=== PATIENT | male | born 2000 | race Caucasian/White ===

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

== ENCOUNTER 2018-08-01 10:53 | Emergency (ER) | payer MEDICAID ==
--- NOTE | 2018-08-01 11:27 | ER Document Report ---
ED General <OLGA ANDREA - Last Filed: 08/01/18 14:47> - General Mode of Arrival: Ambulatory Information source: Patient TRAVEL OUTSIDE OF THE [place] IN LAST 30 DAYS: No - HPI Onset: Just prior to arrival Onset/Duration: Sudden Quality of pain: No pain Severity: None Associated symptoms: None Exacerbated by: Denies Relieved by: Denies Similar symptoms previously: Yes Recently seen / treated by doctor: Yes <SAMANTHA ENRIQUE - Last Filed: 08/04/18 19:01> - General Chief Complaint: Suicidal Ideation Stated Complaint: SI/HI Time Seen by Provider: 08/01/18 11:02 Primary Care Provider: [facility] [Provider Group] - Follow up as needed [facility] [Provider Group] - Follow up as needed FREDDIE PAGAN NP [Primary Care Provider] - Follow up in 3-5 days Notes: 17-year-old male with hypothyroidism, bipolar disorder, schizophrenia, autism presents from the [facility] with complaints of homicidal ideation, suicidal ideation. Patient states that he began hearing voices again telling him to kill his family. He states that they are telling him to "slit their throats". Patient also admits to having thoughts of cutting his wrist. He states he has been compliant with his psychiatric medications but cannot tell me what they are currently. He does state that he has had a recent psychiatric admission within the last year at the [facility]. An employee from [facility] is with the patient and states that they noticed odd behavior today and after inquiring the patient admitted to what was going on. They state the patient was pacing around the room, constantly moving and appeared like a "dear in headlights". (SAMANTHA ENRIQUE) - Related Data Allergies/Adverse Reactions: No Known Allergies Allergy (Verified 08/01/18 10:53) Past Medical History - General Information source: Patient, [facility] Records - Social History Smoking Status: Former Smoker Frequency of alcohol use: None Drug Abuse: None Lives with: Family Family History: Reviewed & Not Pertinent Patient has suicidal ideation: Yes Patient has homicidal ideation: Yes Neurological Medical History: Denies: Hx Seizures Renal/ Medical History: Denies: Hx Peritoneal Dialysis Psychiatric Medical History: Reports: Hx Attention Deficit Hyperactivity Disorder, Hx Bipolar Disorder, Hx Depression, Hx Schizophrenia Past Surgical History: Reports: Hx Orthopedic Surgery - Rt foot - Immunizations Immunizations up to date: Yes Hx Diphtheria, Pertussis, Tetanus Vaccination: Yes <SAMANTHA ENRIQUE - Last Filed: 08/04/18 19:01> Review of Systems <SAMANTHA ENRIQUE - Last Filed: 08/04/18 19:01> - Review of Systems Notes: REVIEW OF SYSTEMS: CONSTITUTIONAL : Denies fever, chills, or sweats. Denies recent illness. Denies weight loss, recent hospitalizations. EENT: Denies visual changes, eye pain. Denies sore throat, oral lesions, difficulty swallowing. CARDIOVASCULAR: Denies chest pain. Denies palpitations. Denies lower extremity edema. RESPIRATORY: Denies cough. Denies shortness of breath, wheezing. GASTROINTESTINAL: Denies abdominal pain or distention. Denies nausea, vomiting, or diarrhea. Denies blood in vomitus, stools, or per rectum. Denies black, tarry stools. Denies constipation. GENITOURINARY: Denies difficulty urinating, painful urination, frequency, blood in urine, testicular pain or penile discharge. MUSCULOSKELETAL: Denies back or neck pain or stiffness. Denies joint pain or swelling. SKIN: Denies rash, lesions or sores. HEMATOLOGIC : Denies easy bruising or bleeding. LYMPHATIC: Denies swollen glands. NEUROLOGICAL: Denies confusion or altered mental status. Denies loss of consciousness. Denies dizziness or lightheadedness. Denies headache. Denies weakness or paralysis. Denies problems difficulty with ambulation, slurred speech. Denies sensory loss, numbness, or tingling. Denies seizures. PSYCHIATRIC: + Suicidal ideation, homicidal ideation, auditory hallucinations (SAMANTHA ENRIQUE) Physical Exam <SAMANTHA ENRIQUE - Last Filed: 08/04/18 19:01> - Vital signs Vitals: Temp Pulse Resp BP Pulse Ox 98.1 F 65 20 144/66 H 98 08/01/18 11:01 08/01/18 11:01 08/01/18 11:01 08/01/18 11:01 08/01/18 11:01 - Notes Notes: PHYSICAL EXAMINATION: GENERAL: Well-appearing, well-nourished and in no acute distress. HEAD: Atraumatic, normocephalic. EYES: Pupils equal round and reactive to light, extraocular movements intact, sclera anicteric, conjunctiva are normal. ENT: Nares patent, oropharynx clear without exudates. Moist mucous membranes. NECK: Normal range of motion, supple without lymphadenopathy LUNGS: Breath sounds clear to auscultation bilaterally and equal. No wheezes rales or rhonchi. HEART: Regular rate and rhythm without murmurs ABDOMEN: Soft, nontender, nondistended abdomen. No guarding, no rebound. No masses appreciated. Musculoskeletal: Normal range of motion, no pitting or edema. No cyanosis. NEUROLOGICAL: Cranial nerves grossly intact. Normal speech, normal gait. Normal sensory, motor exams PSYCH: Cooperative, admits to auditory hallucinations that tell him to kill his family. Admits to suicidal ideation, homicidal ideation. SKIN: Warm, Dry, normal turgor, no rashes or lesions noted. (SAMANTHA ENRIQUE) Course - Laboratory Result Diagrams: 08/01/18 11:39 08/01/18 11:39 <OLGA ANDREA - Last Filed: 08/01/18 14:47> - Laboratory Result Diagrams: 08/01/18 11:39 08/01/18 11:39 <SAMANTHA ENRIQUE - Last Filed: 08/04/18 19:01> - Vital Signs Vital signs: Temp Pulse Resp BP Pulse Ox 98.1 F 64 16 130/60 H 100 08/01/18 15:12 08/01/18 15:12 08/01/18 15:12 08/01/18 15:12 08/01/18 15:12 - Laboratory Laboratory results interpreted by me: 08/01/18 08/01/18 08/01/18 11:39 11:39 11:39 RBC 5.61 H Carbon Dioxide 31 H TSH < 0.01 L Free T3 pg/mL 7.28 H Salicylates < 1.0 L Acetaminophen < 10 L Discharge <LOGA ANDREA - Last Filed: 08/01/18 14:47> <SAMANTHA ENRIQUE - Last Filed: 08/04/18 19:01> - Discharge Clinical Impression: Suicidal ideations, Thyroid function study abnormality Condition: Stable Disposition: HOME, SELF-CARE Additional Instructions: You have been evaluated and assessed at [facility] Emergency Department by both the medical and behavioral health teams after presenting for suicidal and homicidal ideation and are now deemed appropriate for discharge. While in the ED, you received an initial medical screening, lab work, EKG, medications, direct staff observation, clinical evaluation, physician assessment, and outpatient resources. You were cleared from both services and record review revealed a history of similar visits and [facility] Crisis Resources were provided to you for when these situations arise. You are encouraged to develop positive coping skills through outpatient counseling and day treatment program through [facility]. You are also encouraged to follow up with your outpatient mental health provider at [facility] or another provider of your choosing and maintain compliance with your prescribed medication. DEPRESSION: Your evaluation reveals that you have mental depression. While symptoms may be vague, they often include disturbance of sleep, fatigue, loss of appetite, and general loss of interest in life. While depression may be a side effect of drugs, or a reaction to a major change in your life, many cases have no known cause. If depression is acute, and related to a major loss in your life, you can expect it to clear completely with time. If you have been depressed a long time, are prone to repeated bouts of depression or low mood, or have been thinking of suicide, get help. Depression can be treated with anti-depressant medication and counselling. Long-term depression will often take a few weeks to clear, even with appropriate medication. Follow-up care is important. SUICIDAL IDEATION: Suicidal ideation is a common medical term for thoughts about suicide, which may be as detailed as a formulated plan, without the suicidal act itself. Although most people who undergo suicidal ideation do not commit suicide, some go on to make suicide attempts. The range of suicidal ideation varies greatly from fleeting to detailed planning, role playing, and unsuccessful attempts. While thoughts about suicide are common, most people do not carry out serious actions to commit suicide. Based upon your evaluation and discussion with you, we do not believe you are currently at risk to act upon your thoughts of suicide. You have agreed to return to the Emergency Department, at any time, if you feel inclined to act upon your suicidal thoughts. FOLLOW-UP CARE: If you have been referred to a physician for follow-up care, call the physicians office for an appointment as you were instructed or within the next two days. If you experience worsening or a significant change in your symptoms, notify the physician immediately or return to the Emergency Department at any time for re-evaluation. Forms: Elevated Blood Pressure Referrals: [facility] [Provider Group] - Follow up as needed [facility] [Provider Group] - Follow up as needed FREDDIE PAGAN NP [Primary Care Provider] - Follow up in 3-5 days
[2018-08-01 12:08] LABS: ABSOLUTE EOSINOPHILS # (AUTO) 0.1 10^3/uL (0.0-0.6); ABSOLUTE LYMPHOCYTES (AUTO) 1.5 10^3/uL (0.5-4.7); ABSOLUTE MONOCYTES (AUTO) 0.4 10^3/uL (0.1-1.4); ABSOLUTE NEUT (AUTO) 4.7 10^3/uL (1.7-8.2); BASOPHILS % (AUTO) 0.3 % (0-2); EOSINOPHILS % (AUTO) 1.1 % (0-6); HEMATOCRIT 45.7 % (37.9-51.0); HEMOGLOBIN 15.4 g/dL (13.5-17.0); LYMPHOCYTES % (AUTO) 22.1 % (13-45); MEAN CORPUSCULAR HEMOGLOBIN 27.6 pg (27.0-33.4); MEAN CORPUSCULAR HGB CONC 33.8 g/dL (32.0-36.0); MEAN CORPUSCULAR VOLUME 82 fl (80-97); MONOCYTES % (AUTO) 6.7 % (3-13); PLATELET COUNT 186 10^3/uL (150-450); RED BLOOD COUNT 5.61 10^6/uL (4.35-5.55); RED CELL DISTRIBUTION WIDTH 13.6 % (11.5-14.0); SEGMENTED NEUTROPHILS % (AUTO) 69.8 % (42-78); TOTAL CELLS COUNTED % (AUTO) 100 %; WHITE BLOOD COUNT 6.7 10^3/uL (4.0-10.5)
--- NOTE | 2018-08-01 12:10 | EKG REPORT ---
SEVERITY:- BORDERLINE ECG - SINUS RHYTHM PROBABLE LEFT ATRIAL ABNORMALITY BORDERLINE RIGHT AXIS DEVIATION : Confirmed by: Avni Freed MD 01-Aug-2018 12:09:14
[2018-08-01 12:15] LABS: APPEARANCE,URINE CLEAR; BILIRUBIN,URINE NEGATIVE (NEGATIVE); COLOR,URINE STRAW; GLUCOSE, URINE NEGATIVE (NEGATIVE); KETONES,URINE NEGATIVE (NEGATIVE); LEUKOCYTE ESTERASE,URINE NEGATIVE (NEGATIVE); NITRITE,URINE NEGATIVE (NEGATIVE); PROTEIN,URINE NEGATIVE (NEGATIVE); URINE SPECIFIC GRAVITY 1.004; UROBILINOGEN,URINE NEGATIVE mg/dL (<2.0)
[2018-08-01 12:30] LABS: ALANINE AMINOTRANSFERASE 22 U/L (10-40); ALBUMIN 4.5 g/dL (3.7-5.6); ALKALINE PHOSPHATASE 107 U/L (65-260); ANION GAP 5 (5-19); ASPARTATE AMINO TRANSFERASE 17 U/L (10-45); BILIRUBIN,DIRECT 0.1 mg/dL (0.0-0.4); BILIRUBIN,TOTAL 0.3 mg/dL (0.2-1.3); BLOOD UREA NITROGEN 12 mg/dL (7-20); CARBON DIOXIDE 31 mmol/L (22-30); CHLORIDE 103 mmol/L (98-107); GLUCOSE 94 mg/dL (75-110); POTASSIUM 4.4 mmol/L (3.6-5.0); SODIUM 139.2 mmol/L (137-145); TOTAL PROTEIN 6.7 g/dL (6.3-8.2)
[2018-08-01 12:32] LABS: ACETAMINOPHEN < 10 ug/mL (10-30); ALCOHOL < 10 mg/dL (NONE DETECTED); SALICYLATE < 1.0 mg/dL (2.0-20.0)
[2018-08-01 12:33] LABS: URINE AMPHETAMINES SCREEN NEGATIVE; URINE BARBITURATES SCREEN NEGATIVE; URINE BENZODIAZEPINES SCREEN NEGATIVE; URINE COCAINE SCREEN NEGATIVE; URINE MARIJUANA (THC) SCREEN NEGATIVE; URINE METHADONE SCREEN NEGATIVE; URINE PHENCYCLIDINE SCREEN NEGATIVE
[2018-08-01 12:46] LABS: FREE T3 7.28 pg/mL (2.77-5.27); FREE T4 (FREE THYROXINE) 1.65 ng/dL (0.78-2.19)
[2018-08-01 13:01] LABS: THYROID STIMULATING HORMONE < 0.01 uIU/mL (0.47-4.68)
[2018-08-01] MEDS ORDERED: LEVOTHYROXINE SODIUM 0.05 MG TABLET PO ONE (14:04)
--- NOTE | 2018-08-01 14:49 | PSYCHOLOGICAL NOTE ---
Psych Note - Psych Note Date seen by psych provider: 08/01/18 Time seen by psych provider: 13:15 Psych Note: Reason for consult:SI, HI Contact Permissions:Grandfather and guardian Pipe Rangel Patient is a 17 yo male presenting to the ED from [facility] where he attends a day group for "odd behavior i.e. pacing. Chart review shows patient has prior psych visits SI, DMDD, IDD, and ADHD in 2016, SI x2 in 2017, and 1x in 2018. Patient is a 17 yo male with Bipolar and ASD diagnoses who reports isolated/situational SI/HI thoughts and reports a hx of NSSI (cutting). He says he was having thoughts of cutting himself today due to "just that kid/I wanted to punch him but I would have got in trouble so I didn't do it". Patient walked away and has told all of the staff members that he is annoyed by this other group member. He started having anxiety about this other member two days ago and told him to stay away from him. Last incident of cutting was 3 months ago. Patient denies SI, HI, and reports hearing voices which he describes as internal thoughts. Patient verbalizes that he has never acted on and does not want to act on these thoughts which consist of killing the family dog and slitting his own throat. He admits to punching rangel when he's angry. Patient's guardian reports that the only time we ever have a problem in on days when he's at [facility] day program 2days per week. He describes patient as calm and easy to get along with at home. He c/o patient being on too much medication and asks for a referral. He denies concern for patient's safety or other's safety and will keep him home form the day program tomorrow to respite and talk to adm inistration at [facility]. Patient is alert and oriented x 4. Mood is euthymic with congruent affect. Patient denies SI, HI, and AV/H, does not appear to be responding to internal stimuli, and no delusions were noted. Conversational speech was WNL for rate, tone, and prosody. Eye contact was well maintained. Thought processes were linear, organized, and rational. Intellectual abilities were estimated within the average range. Attention/concentration was WNL while, insight, judgment, and impulse control were fair. 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 Masters are as follows: Discontinue Abilify and Lexapro Impression/Plan: Patient is clear from acute psychiatric services as there is no risk of harm to self or others aeb patient denies SI, HI, and AV/H and demonstrated good judgment, and impulse control. Specifically, patient walks away from co-member at his community group who is causing him to feel anxious and annoyed and has alerted staff members about the issue. Patient is a 17 yo male with Bipolar and ASD diagnoses who reports isolated/situational SI/HI thoughts which he interprets as auditory hallucinations. Patient communicating suicidal ideation for depression is congruent with diagnosis of social pragmatic communication disorder. Patient verbalizes that he has never acted on and does not want to act on these thoughts. Behavioral Health provided psychoeducation on self- soothing techniques. Guardian plans for patient to respite from his day group tomorrow and speak to staff on his behalf. Patient is recommended to follow-up with outpatient providers [facility] and was provided with a list of local MH providers per Guardian's request. Dr. Marx was consulted on the care management of this patient attending physician is in agreement with recommendations and disposition.
[2018-08-01 15:14] VITALS: BP 130/60
== END 2018-08-01 15:18 | disposition home or self-care (01) ==
LOC: ER 10:53
DX: R45.851 Suicidal ideations (principal); R45.850 Homicidal ideations; F31.9 Bipolar disorder, unspecified; R44.0 Auditory hallucinations; E03.9 Hypothyroidism, unspecified; Z79.899 Other long term (current) drug therapy; Z87.891 Personal history of nicotine dependence
CPT/HCPCS: 36415; 80053; 80307; 81001; 84439; 84443; 84481; 85025; 93005; 93010; 99285

== ENCOUNTER 2018-11-16 11:57 | Emergency (ER) | payer MEDICAID ==
--- NOTE | 2018-11-16 12:52 | RADIOLOGY REPORT (SQ) ---
EXAM DESCRIPTION: HAND RIGHT 3 VIEWS COMPLETED DATE/TIME: 11/16/2018 12:20 pm REASON FOR STUDY: R hand pain s/p injury COMPARISON: 03/07/2017 EXAM PARAMETERS: NUMBER OF VIEWS: Three views. TECHNIQUE: AP, lateral and oblique radiographic images acquired of the right hand. LIMITATIONS: None. FINDINGS: MINERALIZATION: Normal. BONES: No acute fracture. Old 5th metacarpal fracture. JOINTS: No effusions. SOFT TISSUES: No soft tissue swelling. No foreign body. OTHER: No other significant finding. IMPRESSION: NEGATIVE STUDY OF THE RIGHT HAND. NO RADIOGRAPHIC EVIDENCE OF ACUTE INJURY. TECHNICAL DOCUMENTATION: JOB ID: [id number] [employer]- All Rights Reserved Reading location - IP/workstation name: [email or web address]
[2018-11-16] MEDS ORDERED: IBUPROFEN 600 MG TABLET PO ONE (13:37)
--- NOTE | 2018-11-16 13:44 | ER Document Report ---
HPI - HPI Time Seen by Provider: 11/16/18 13:15 Pain Level: 3 Notes: Patient is a 17-year-old male presenting to the emergency department with chief complaint of right hand pain. Patient reports approximately 3 days ago he was hearing voices due to his history of schizophrenia and when he walked into the bathroom to try to calm down he states he blacked out and fell. He states since then he has had pain to his right hand. He denies any other symptoms at this time. - CONSTITUTIONAL Constitutional: DENIES: Fever, Chills - MUSCULOSKELETAL Musculoskeletal: REPORTS: Extremity pain - right hand Past Medical History - General Information source: Patient, Relative - Social History Smoking Status: Never Smoker Chew tobacco use (# tins/day): No Frequency of alcohol use: None Drug Abuse: None Family History: Reviewed & Not Pertinent Patient has suicidal ideation: No Patient has homicidal ideation: No Neurological Medical History: Denies: Hx Seizures Renal/ Medical History: Denies: Hx Peritoneal Dialysis Psychiatric Medical History: Reports: Hx Attention Deficit Hyperactivity Disorder, Hx Bipolar Disorder, Hx Depression, Hx Schizophrenia Past Surgical History: Reports: Hx Orthopedic Surgery - Rt foot - Immunizations Immunizations up to date: Yes Hx Diphtheria, Pertussis, Tetanus Vaccination: Yes Vertical Provider Document - CONSTITUTIONAL Notes: PHYSICAL EXAMINATION: GENERAL: Well-appearing, well-nourished and in no acute distress. HEAD: Atraumatic, normocephalic. EYES: Pupils equal round extraocular movements intact, conjunctiva are normal. ENT: Nares patent NECK: Normal range of motion LUNGS: No respiratory distress Musculoskeletal: Normal range of motion to right hand, patient able to make a full fist, strong radial pulse, cap refill less than 3 seconds. Mild edema noted. NEUROLOGICAL: Normal speech, normal gait. PSYCH: Normal mood, normal affect. SKIN: Warm, Dry, normal turgor, no rashes or lesions noted. - INFECTION CONTROL TRAVEL OUTSIDE OF THE [place] IN LAST 30 DAYS: No Course - Re-evaluation Re-evalutation: X-ray to right hand is negative for any fracture or dislocation. Patient will be placed in Aguilar wrap for comfort and will be discharged home in stable condition. - Vital Signs Vital signs: Temp Pulse Resp BP Pulse Ox 99.0 F 66 18 143/66 H 99 11/16/18 12:02 11/16/18 12:02 11/16/18 12:02 11/16/18 12:02 11/16/18 12:02 Procedures - Immobilization Right hand Pre-Proc Neuro Vasc Exam: Normal Immobilizer type: Aguilar wrap Performed by: PCT Post-Proc Neuro Vasc Exam: Normal Alignment checked and good: Yes Discharge - Discharge Clinical Impression: Contusion of right hand Qualifiers: Encounter type: initial encounter Qualified Code(s): S60.221A - Contusion of right hand, initial encounter Condition: Stable Disposition: HOME, SELF-CARE Additional Instructions: Contusion Your injury has resulted in a contusion -- a crushing of the deep tissues. No injury to important structures was detected during the physician's exam. Contusions vary in the amount of pain they cause, and in the length of time required for healing. Typically, the area will become bruised, and will remain painful to touch for two or three weeks. However, most patients are back to working and playing within a few days. After the initial period of rest and cold-packs, your symptoms (together with the doctor's recommendations) will determine how rapidly you can get back to full activity. Usually this means "do what feels okay, but don't do things that hurt." If re-examination was recommended, it's important to follow up as instructed. Call the doctor or return any time if pain increases, if swelling becomes severe, if you develop numbness or weakness in an injured extremity, or if any other alarming symptoms occur. Ice & Elevation Apply ice packs frequently against the painful area. Many different schedules are recommended, such as "20 minutes on, 20 minutes off" or "one hour ice, two hours rest." If you need to work, you may need to go longer between ice treatments. You should plan to have the area ice packed AT LEAST one-fourth of the time. The ice should be applied over the wrap, tape, or splint, or over a layer of cloth -- not directly against the skin. Some ice bags have a built-in cloth and can be put directly on the skin. Your injured part should be elevated as much as possible over the next 48 hours. Try to keep the injury above the level of the heart. Avoid use of the injured area. Elevation and rest will decrease the swelling. Ibuprofen Ibuprofen is an excellent, safe drug for pain control. In addition, it has potent antiinflammatory effects which are beneficial, especially in the treatment of injuries, arthritis, or tendonitis. It's best to take ibuprofen with food. Persons with ulcer disease or allergy to aspirin should notify their physician of this before taking ibuprofen. Take the medication exactly as prescribed. Don't take additional doses unless instructed to do so by your doctor. If you develop wheezing, shortness of breath, hives, faintness, stomach pain, vomiting, or dark black stools, return for re-evaluation at once. The x-rays were negative for any fracture or dislocation. Please take ibuprofen [id number] as directed to help with pain and inflammation. Referrals: FREDDIE PAGAN NP [NO LOCAL MD] - Follow up as needed
[2018-11-16 13:47] VITALS: BP 138/68
== END 2018-11-16 13:47 | disposition home or self-care (01) ==
LOC: ER 11:57
DX: S60.221A Contusion of right hand, initial encounter (principal); M79.641 Pain in right hand; W19.XXXA Unspecified fall, initial encounter; Y93.89 Activity, other specified
CPT/HCPCS: 99283; 73130; J3490

== ENCOUNTER → 2019-01-09 | Outpatient (CLI) | payer MEDICARE, MEDICAID ==
[2019-01-09 08:18] LABS: ABSOLUTE EOSINOPHILS # (AUTO) 0.3 10^3/uL (0.0-0.6); ABSOLUTE LYMPHOCYTES (AUTO) 1.9 10^3/uL (0.5-4.7); ABSOLUTE MONOCYTES (AUTO) 0.5 10^3/uL (0.1-1.4); ABSOLUTE NEUT (AUTO) 5.5 10^3/uL (1.7-8.2); BASOPHILS % (AUTO) 0.5 % (0-2); EOSINOPHILS % (AUTO) 3.8 % (0-6); HEMATOCRIT 47.4 % (37.9-51.0); HEMOGLOBIN 15.7 g/dL (13.5-17.0); LYMPHOCYTES % (AUTO) 22.7 % (13-45); MEAN CORPUSCULAR HEMOGLOBIN 28.8 pg (27.0-33.4); MEAN CORPUSCULAR VOLUME 87 fl (80-97); MONOCYTES % (AUTO) 6.5 % (3-13); PLATELET COUNT 178 10^3/uL (150-450); RED BLOOD COUNT 5.43 10^6/uL (4.35-5.55); RED CELL DISTRIBUTION WIDTH 13.2 % (11.5-14.0); SEGMENTED NEUTROPHILS % (AUTO) 66.5 % (42-78); TOTAL CELLS COUNTED % (AUTO) 100 %; WHITE BLOOD COUNT 8.2 10^3/uL (4.0-10.5)
[2019-01-09 08:40] LABS: ALBUMIN 4.7 g/dL (3.5-5.0); ALKALINE PHOSPHATASE 100 U/L (38-126); ANION GAP 9 (5-19); ASPARTATE AMINO TRANSFERASE 20 U/L (17-59); BILIRUBIN,DIRECT 0.2 mg/dL (0.0-0.4); BILIRUBIN,TOTAL 0.3 mg/dL (0.2-1.3); BLOOD UREA NITROGEN 14 mg/dL (7-20); CALCIUM 9.8 mg/dL (8.4-10.2); CARBON DIOXIDE 32 mmol/L (22-30); CHLORIDE 101 mmol/L (98-107); CHOLESTEROL 115.86 mg/dL (0-200); GLUCOSE 83 mg/dL (75-110); LITHIUM 0.5 mEq/L (0.6-1.2); POTASSIUM 4.3 mmol/L (3.6-5.0); TOTAL PROTEIN 7.2 g/dL (6.3-8.2); TRIGLYCERIDES 77 mg/dL (<150)
[2019-01-09 08:51] LABS: DIRECT LDL 67 mg/dL (<100)
[2019-01-09 08:52] LABS: FREE T4 (FREE THYROXINE) 0.75 ng/dL (0.78-2.19)
[2019-01-09 09:06] LABS: THYROID STIMULATING HORMONE 2.39 uIU/mL (0.47-4.68)
== END ==
LOC: OD 07:22
PROVIDERS: ATTEND Nurse Practitioner Psychiatric/Mental Health
DX: F25.0 Schizoaffective disorder, bipolar type (principal); Z79.899 Other long term (current) drug therapy
CPT/HCPCS: 36415; 80053; 80061; 80178; 83036; 84439; 84443; 85025

== ENCOUNTER 2019-03-19 12:40 | Emergency (ER) | payer MEDICARE, MEDICAID ==
--- NOTE | 2019-03-19 13:27 | ER Document Report ---
ED Medical Screen (RME) - General Stated Complaint: PSYCH EVAL/SUICIDAL IDEATION Time Seen by Provider: 03/19/19 13:19 Primary Care Provider: MOMO BOSWELL NP [Primary Care Provider] - Follow up as needed Notes: Patient is a 18-year-old male with a history of bipolar, ADHD, disruptive mood dysregulation disorder, and suicidal ideation who presents to the emergency department with suicidal ideations. He denies homicidal ideations. Patient states that on Tuesday and today he took a handful of his old sleeping medications. Patient states that he took Depakote, prazosin, Abilify, and clonidine. [facility] picked him up. Patient still feels suicidal. Exam: Withdrawn. I have greeted and performed a rapid initial assessment of this patient. A comprehensive ED assessment and evaluation of the patient, analysis of test results and completion of medical decision making process will be conducted by an additional ED providers. TRAVEL OUTSIDE OF THE [place] IN LAST 30 DAYS: No - Related Data Allergies/Adverse Reactions: No Known Allergies Allergy (Verified 11/16/18 11:59) Past Medical History Neurological Medical History: Denies: Hx Seizures Renal/ Medical History: Denies: Hx Peritoneal Dialysis Psychiatric Medical History: Reports: Hx Attention Deficit Hyperactivity Disorder, Hx Bipolar Disorder, Hx Depression, Hx Schizophrenia Past Surgical History: Reports: Hx Orthopedic Surgery - Rt foot - Immunizations Immunizations up to date: Yes Hx Diphtheria, Pertussis, Tetanus Vaccination: Yes Physical Exam - Vital signs Vitals: Temp Pulse Resp BP Pulse Ox 98.1 F 74 18 142/67 H 98 03/19/19 12:44 03/19/19 12:44 03/19/19 12:44 03/19/19 12:44 03/19/19 12:44 Course - Vital Signs Vital signs: Temp Pulse Resp BP Pulse Ox 98.1 F 74 18 142/67 H 98 03/19/19 12:44 03/19/19 12:44 03/19/19 12:44 03/19/19 12:44 03/19/19 12:44 Doctor's Discharge - Discharge Referrals: MOMO BOSWELL NP [Primary Care Provider] - Follow up as needed
[2019-03-19 13:56] LABS: ABSOLUTE EOSINOPHILS # (AUTO) 0.2 10^3/uL (0.0-0.6); ABSOLUTE LYMPHOCYTES (AUTO) 1.3 10^3/uL (0.5-4.7); ABSOLUTE MONOCYTES (AUTO) 0.5 10^3/uL (0.1-1.4); ABSOLUTE NEUT (AUTO) 6.5 10^3/uL (1.7-8.2); BASOPHILS % (AUTO) 0.4 % (0-2); EOSINOPHILS % (AUTO) 2.3 % (0-6); HEMATOCRIT 46.7 % (37.9-51.0); HEMOGLOBIN 15.5 g/dL (13.5-17.0); LYMPHOCYTES % (AUTO) 15.5 % (13-45); MEAN CORPUSCULAR HEMOGLOBIN 28.8 pg (27.0-33.4); MEAN CORPUSCULAR HGB CONC 33.2 g/dL (32.0-36.0); MEAN CORPUSCULAR VOLUME 87 fl (80-97); PLATELET COUNT 183 10^3/uL (150-450); RED BLOOD COUNT 5.38 10^6/uL (4.35-5.55); RED CELL DISTRIBUTION WIDTH 13.1 % (11.5-14.0); SEGMENTED NEUTROPHILS % (AUTO) 75.8 % (42-78); TOTAL CELLS COUNTED % (AUTO) 100 %; WHITE BLOOD COUNT 8.6 10^3/uL (4.0-10.5)
[2019-03-19 14:05] LABS: APPEARANCE,URINE CLEAR; BILIRUBIN,URINE NEGATIVE (NEGATIVE); COLOR,URINE YELLOW; GLUCOSE, URINE NEGATIVE (NEGATIVE); KETONES,URINE NEGATIVE (NEGATIVE); LEUKOCYTE ESTERASE,URINE NEGATIVE (NEGATIVE); NITRITE,URINE NEGATIVE (NEGATIVE); PROTEIN,URINE NEGATIVE (NEGATIVE); URINE SPECIFIC GRAVITY 1.013; UROBILINOGEN,URINE NEGATIVE mg/dL (<2.0)
[2019-03-19 14:18] LABS: ALBUMIN 4.7 g/dL (3.5-5.0); ALKALINE PHOSPHATASE 84 U/L (38-126); ANION GAP 8 (5-19); ASPARTATE AMINO TRANSFERASE 25 U/L (17-59); BILIRUBIN,TOTAL 0.7 mg/dL (0.2-1.3); BLOOD UREA NITROGEN 17 mg/dL (7-20); CALCIUM 9.9 mg/dL (8.4-10.2); CARBON DIOXIDE 31 mmol/L (22-30); CHLORIDE 102 mmol/L (98-107); GLUCOSE 89 mg/dL (75-110); POTASSIUM 4.1 mmol/L (3.6-5.0); TOTAL PROTEIN 7.4 g/dL (6.3-8.2)
[2019-03-19 14:20] LABS: ACETAMINOPHEN < 10 ug/mL (10-30); ALCOHOL < 10 mg/dL (NONE DETECTED); SALICYLATE < 1.0 mg/dL (2.0-20.0)
[2019-03-19 14:25] LABS: URINE AMPHETAMINES SCREEN NEGATIVE; URINE BARBITURATES SCREEN NEGATIVE; URINE BENZODIAZEPINES SCREEN NEGATIVE; URINE COCAINE SCREEN NEGATIVE; URINE MARIJUANA (THC) SCREEN NEGATIVE; URINE METHADONE SCREEN NEGATIVE; URINE PHENCYCLIDINE SCREEN NEGATIVE
--- NOTE | 2019-03-19 16:55 | ER Document Report ---
ED General - General Chief Complaint: Suicidal Ideation Stated Complaint: PSYCH EVAL/SUICIDAL IDEATION Time Seen by Provider: 03/19/19 13:19 Primary Care Provider: MOMO BOSWELL NP [NO LOCAL MD] - Follow up as needed Mode of Arrival: Ambulatory Information source: Patient Notes: 18-year-old male with a history of bipolar schizophrenia presents to the emergency department with reports of suicide ideations. Also reports he is hearing voices that are telling him to hurt himself. Patient reports he took all his medications which include a sleeping pill thyroid medication and all his lithium. Patient is calm, alert and answering all questions. Sister is at his bedside. He reports that he was getting bullied by the people in his program 2 weeks ago. Sister is unsure of the name of the program. Patient currently lives with his aunt but there is a custody issue going on and he may be moving to [place]. Sister reports that his mental health provider is trying to get him into a treatment sister and done for the next 14 days. Patient reports he is eating and drinking okay denies fever vomiting diarrhea. TRAVEL OUTSIDE OF THE [place] IN LAST 30 DAYS: No - HPI Onset: Other Onset/Duration: Persistent Quality of pain: No pain Associated symptoms: None Exacerbated by: Denies Relieved by: Denies Similar symptoms previously: Yes Recently seen / treated by doctor: No - Related Data Allergies/Adverse Reactions: No Known Allergies Allergy (Verified 11/16/18 11:59) Past Medical History - General Information source: Patient - Social History Smoking Status: Never Smoker Cigarette use (# per day): No Chew tobacco use (# tins/day): No Frequency of alcohol use: None Drug Abuse: None Lives with: Family - Aunt Family History: Reviewed & Not Pertinent Patient has suicidal ideation: Yes Patient has homicidal ideation: No Neurological Medical History: Denies: Hx Seizures Renal/ Medical History: Denies: Hx Peritoneal Dialysis Psychiatric Medical History: Reports: Hx Attention Deficit Hyperactivity Disorder, Hx Bipolar Disorder, Hx Depression, Hx Schizophrenia Past Surgical History: Reports: Hx Orthopedic Surgery - Rt foot - Immunizations Immunizations up to date: Yes Hx Diphtheria, Pertussis, Tetanus Vaccination: Yes Review of Systems - Review of Systems Notes: Review HPI for review of systems., All other systems negative Physical Exam - Vital signs Vitals: Temp Pulse Resp BP Pulse Ox 98.1 F 74 18 142/67 H 98 03/19/19 12:44 03/19/19 12:44 03/19/19 12:44 03/19/19 12:44 03/19/19 12:44 - Notes Notes: PHYSICAL EXAMINATION: GENERAL: Well-appearing and in no acute distress HEAD: Atraumatic, normocephalic. EYES: extraocular movements intact, sclera anicteric, conjunctiva are normal. ENT: nares patent, Moist mucous membranes. NECK: Normal range of motion, supple without lymphadenopathy LUNGS: CTAB and equal. No wheezes rales or rhonchi. HEART: Regular rate and rhythm without murmurs ABDOMEN: Soft, no tenderness. No guarding, no rebound EXTREMITIES: Normal range of motion, . NEUROLOGICAL: Cranial nerves grossly intact. PSYCH: Normal mood, normal affect. SKIN: Warm, Dry, normal turgor, 2 healing wounds to left forearm -no s/s infection Course - Re-evaluation Re-evalutation: 03/19/19 18-year-old male presents with schizophrenia reports he attempted to kill himself by taking his medications. [place] level was 1.6. Patient also has 2 healing wounds to his left arm where he has scratched himself to the point he was bleeding but they are now scabbed over. Discussed plan of care with family, sister and grandfather. They would like him to stay overnight so they can find a place for him to go tomorrow. Drake from [facility] was there and agreed with plan. Report given to LIANNE Wilburn. Dictation of this chart was performed using voice recognition software; therefore, there may be some unintended grammatical errors. - Vital Signs Vital signs: Temp Pulse Resp BP Pulse Ox 98.3 F 58 L 16 107/84 100 03/19/19 18:26 03/19/19 18:26 03/19/19 18:26 03/19/19 18:26 03/19/19 18:26 - Laboratory Result Diagrams: 03/19/19 13:36 03/19/19 13:36 Laboratory results interpreted by me: 03/19/19 03/19/19 13:36 13:36 Carbon Dioxide 31 H Salicylates < 1.0 L Acetaminophen < 10 L [place] 1.4 H Discharge - Discharge Clinical Impression: Suicidal ideations Condition: Stable Disposition: PSYCH HOSP/UNIT Referrals: MOMO BOSWELL NP [NO LOCAL MD] - Follow up as needed
--- NOTE | 2019-03-19 17:44 | PSYCHOLOGICAL NOTE ---
Psych Note - Psych Note Date seen by psych provider: 03/19/19 Time seen by psych provider: 15:00 Psych Note: Reason For Consult: Consent Permissions: Pt presents to the ED for SI with attempt. Pt states the he took his nighttime medicine that "helps him sleep". Meds taken includes abilify and clonidine. Pt states that he does want to kill himself. Patient states he took his evening medications then states he took his abilify and "some other ones." when asked how many he took he reports he took the whole bottle of abilify; patient has gently reminded that it is important to tell the truth which he then stated he jut took his normal dose of evening medications. He felt that taking them early would show he was upset. (Patient has a long documented history of behavioral outbursts that include suicidal comments and gestures when attempting to deflect or avoid). Patient is alert and orientated to person, place, time and circumstance. Mood is euthymic with congruent affect. Patient denies suicidal and homicidal ideation. Delusions are absent and behaviors congruent with an intact reality based presentation ie organized and linear thought process. Eye contact is well-maintained. Conversational speech is within normal rate, tone and prosody. Intellectual abilities appear to be below average range. Attention and concentration are good. Insight, judgment, impulse control are historically poor. Clinician spoke with patient's grandfather who identifies himself his legal guardian and patient's sister. They report that the patient is unable to live with his grandfather because of his behavioral outbursts and there is a small child in his home. They report that he has been living with his aunt recently and there is been concern that his aunt is not been taking the patient to his day treatment program daily as she should be. He continued to report that the patient's biological father is been working on obtaining legal guardianship; he lives in [place]. Patient's grandfather states he feels that biological father would likely be a good legal guardian but they are waiting for all the paperwork to come through. Both patient's grandfather and sister report that the patient is not safe in returning home to the aunt. Clinician reminded patient's grandfather that as legal guardian he needs to find new living arrangements for the patient. Originally, both patient's grandfather and sister demanded inpatient psychiatric treatment; however, once it was explained that inpatient psychiatric treatment would not be appropriate due to the patient's neurocognitive diagnosis, they agreed it would not be appropriate. (Inpatient psychiatric treatment would not be appropriate for this patient due to it being behavioral stemming from his developmental diagnosis. There is significant concern that the patient would increase in maladaptive behaviors in an inpatient psychiatric setting, the patient needs outpatient resources to build daily living skills due to his neurocognitive diagnosis and going inpatient reinforces the patient's task avoidance and deflecting.) They expressed concern again with the patient returning home to the patient's and and stated again that the patient was unable to return to his legal guardians home. Clinician provided resources to [facility] for the family to contact for additional assistance on housing options and explained that respite can be provided for the patient due to their concerns for safety; however, the patient must be picked up by noon tomorrow. 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 Guerrero MG are as follows Continue home medications; however, please hold tonight's dose of Antoine Impression\\plan: Patient does not meet IVC criteria per [place] GS 122C. Patient is well-known to clinician and department. Patient's history of autism leads to significant difficulties with task avoidance. Patient historically uses suicidal ideation comments and gestures to avoid tasks and situations. At this time family is requesting a respite overnight to assist them with time to find a new living arrangement. Patient's grandfather is the legal guardian of the patient so the patient is unable to sign himself out AMA. After today's behavioral event the patient may not be able to return to his living arrangement. Clinician provided resources to patient's sister which include [facility] to discuss other treatment and housing options. Patient's family agreed to respite care overnight and understand that they must molded goods spot picker the patient for discharge tomorrow by noon. Dr. Marx was consulted to care management of this patient; attending physicians in agreement with recommendations and disposition.
--- NOTE | 2019-03-19 19:46 | EKG REPORT ---
SEVERITY:- BORDERLINE ECG - SINUS RHYTHM BORDERLINE RIGHT AXIS DEVIATION , LPFB INFERIOR Q WAVES, PROBABLY NORMAL VARIATION ST ELEV, PROBABLE NORMAL EARLY REPOL PATTERN : Confirmed by: Avni Freed MD 19-Mar-2019 19:45:43
[2019-03-20 10:30] VITALS: BP 133/78
== END 2019-03-20 10:33 | disposition home or self-care (01) ==
LOC: ER 12:40
DX: R45.851 Suicidal ideations (principal); F80.82 Social pragmatic communication disorder; F20.9 Schizophrenia, unspecified; F31.9 Bipolar disorder, unspecified; Z79.899 Other long term (current) drug therapy; R23.4 Changes in skin texture
CPT/HCPCS: 36415; 80053; 80178; 80307; 81001; 85025; 93005; 93010; 99285

== ENCOUNTER → 2019-07-23 | Outpatient (CLI) | payer MEDICARE, MEDICAID ==
[2019-07-23 08:44] LABS: ABSOLUTE EOSINOPHILS # (AUTO) 0.3 10^3/uL (0.0-0.6); ABSOLUTE LYMPHOCYTES (AUTO) 2.1 10^3/uL (0.5-4.7); ABSOLUTE MONOCYTES (AUTO) 0.6 10^3/uL (0.1-1.4); ABSOLUTE NEUT (AUTO) 4.3 10^3/uL (1.7-8.2); BASOPHILS % (AUTO) 0.5 % (0-2); EOSINOPHILS % (AUTO) 3.8 % (0-6); HEMATOCRIT 44.4 % (37.9-51.0); HEMOGLOBIN 15.4 g/dL (13.5-17.0); LYMPHOCYTES % (AUTO) 28.6 % (13-45); MEAN CORPUSCULAR HEMOGLOBIN 29.2 pg (27.0-33.4); MEAN CORPUSCULAR HGB CONC 34.6 g/dL (32.0-36.0); MEAN CORPUSCULAR VOLUME 84 fl (80-97); MONOCYTES % (AUTO) 7.7 % (3-13); PLATELET COUNT 182 10^3/uL (150-450); RED BLOOD COUNT 5.26 10^6/uL (4.35-5.55); RED CELL DISTRIBUTION WIDTH 12.7 % (11.5-14.0); SEGMENTED NEUTROPHILS % (AUTO) 59.4 % (42-78); TOTAL CELLS COUNTED % (AUTO) 100 %; WHITE BLOOD COUNT 7.2 10^3/uL (4.0-10.5)
[2019-07-23 09:01] LABS: ALBUMIN 4.3 g/dL (3.5-5.0); ALKALINE PHOSPHATASE 95 U/L (38-126); ANION GAP 6 (5-19); ASPARTATE AMINO TRANSFERASE 27 U/L (17-59); BILIRUBIN,DIRECT 0.4 mg/dL (0.0-0.4); BILIRUBIN,TOTAL 0.5 mg/dL (0.2-1.3); BLOOD UREA NITROGEN 15 mg/dL (7-20); CALCIUM 9.5 mg/dL (8.4-10.2); CARBON DIOXIDE 34 mmol/L (22-30); CHLORIDE 101 mmol/L (98-107); CHOLESTEROL 141.28 mg/dL (0-200); GLUCOSE 95 mg/dL (75-110); LITHIUM 0.4 mEq/L (0.6-1.2); POTASSIUM 4.1 mmol/L (3.6-5.0); TOTAL PROTEIN 7.1 g/dL (6.3-8.2); TRIGLYCERIDES 64 mg/dL (<150)
[2019-07-23 09:12] LABS: DIRECT LDL 99 mg/dL (<100)
[2019-07-23 09:17] LABS: FREE T4 (FREE THYROXINE) 0.96 ng/dL (0.78-2.19)
[2019-07-23 09:31] LABS: THYROID STIMULATING HORMONE 3.15 uIU/mL (0.47-4.68)
== END ==
LOC: LAB 08:26
PROVIDERS: ATTEND Nurse Practitioner Psychiatric/Mental Health
DX: F25.0 Schizoaffective disorder, bipolar type (principal); Z79.899 Other long term (current) drug therapy
CPT/HCPCS: 36415; 80053; 80061; 80178; 84439; 84443; 85025

== ENCOUNTER 2020-01-18 05:16 | Emergency (ER) | payer MEDICARE, MEDICAID ==
[2020-01-18 07:49] LABS: ABSOLUTE BASOPHILS # (AUTO) 0.1 10^3/uL (0.0-0.2); ABSOLUTE EOSINOPHILS # (AUTO) 0.2 10^3/uL (0.0-0.6); ABSOLUTE LYMPHOCYTES (AUTO) 2.4 10^3/uL (0.5-4.7); ABSOLUTE MONOCYTES (AUTO) 0.7 10^3/uL (0.1-1.4); ABSOLUTE NEUT (AUTO) 6.9 10^3/uL (1.7-8.2); BASOPHILS % (AUTO) 0.5 % (0-2); EOSINOPHILS % (AUTO) 1.6 % (0-6); LYMPHOCYTES % (AUTO) 23.4 % (13-45); MEAN CORPUSCULAR HEMOGLOBIN 28.9 pg (27.0-33.4); MEAN CORPUSCULAR HGB CONC 34.7 g/dL (32.0-36.0); MEAN CORPUSCULAR VOLUME 83 fl (80-97); MONOCYTES % (AUTO) 6.9 % (3-13); PLATELET COUNT 187 10^3/uL (150-450); RED BLOOD COUNT 5.52 10^6/uL (4.35-5.55); RED CELL DISTRIBUTION WIDTH 13.5 % (11.5-14.0); SEGMENTED NEUTROPHILS % (AUTO) 67.6 % (42-78); TOTAL CELLS COUNTED % (AUTO) 100 %; WHITE BLOOD COUNT 10.2 10^3/uL (4.0-10.5)
[2020-01-18 07:50] LABS: APPEARANCE,URINE CLEAR; BILIRUBIN,URINE NEGATIVE (NEGATIVE); COLOR,URINE YELLOW; GLUCOSE, URINE NEGATIVE (NEGATIVE); KETONES,URINE NEGATIVE (NEGATIVE); LEUKOCYTE ESTERASE,URINE NEGATIVE (NEGATIVE); NITRITE,URINE NEGATIVE (NEGATIVE); PROTEIN,URINE 30 mg/dL (NEGATIVE); URINE SPECIFIC GRAVITY 1.019; UROBILINOGEN,URINE NEGATIVE mg/dL (<2.0)
[2020-01-18 08:07] LABS: ADD MANUAL MICROSCOPIC YES
[2020-01-18 08:08] LABS: RBC,URINE 0-1 /HPF; WBC,URINE NONE SEEN /HPF
[2020-01-18 08:14] LABS: ALBUMIN 5.3 g/dL (3.5-5.0); ALKALINE PHOSPHATASE 98 U/L (38-126); ANION GAP 10 (5-19); ASPARTATE AMINO TRANSFERASE 34 U/L (17-59); BILIRUBIN,DIRECT 0.2 mg/dL (0.0-0.4); BILIRUBIN,TOTAL 0.5 mg/dL (0.2-1.3); BLOOD UREA NITROGEN 16 mg/dL (7-20); CALCIUM 9.7 mg/dL (8.4-10.2); CARBON DIOXIDE 29 mmol/L (22-30); CHLORIDE 102 mmol/L (98-107); GLUCOSE 102 mg/dL (75-110); POTASSIUM 4.1 mmol/L (3.6-5.0); TOTAL PROTEIN 8.1 g/dL (6.3-8.2)
[2020-01-18] MEDS ORDERED: ONDANSETRON HCL INJ/PF 4 MG/2 ML SDV IV ONE (08:16)
[2020-01-18] MEDS ORDERED: MORPHINE SULFATE 10 MG/ML INJ IV ONE (08:17)
--- NOTE | 2020-01-18 08:26 | ER Document Report ---
ED GI/ - General Chief Complaint: Flank Pain Stated Complaint: VOMITING,RIGHT SIDED FLANK PAIN Time Seen by Provider: 01/18/20 08:08 Notes: CHIEF COMPLAINT: Right lower quadrant pain HPI: 19-year-old male presenting for evaluation of right lower quadrant pain intermittent over the last 2 weeks became constant last night with nausea vomiting. States pain is worse with position movement and walking. States pain is in the right lower back but also in the right lower quadrant region. Denies penile or testicular pain. Denies dysuria. Denies fever. Patient is concerned about appendicitis ROS: See HPI - all other systems were reviewed and are otherwise negative Constitutional: no fever Eyes: no drainage, no blurred vision ENT: no runny nose, no sore throat Cardiovascular: no chest pain Resp: no SOB, no cough GI: + vomiting, no diarrhea, + abdominal pain : no dysuria Integumentary: no rash Allergy: no hives Musculoskeletal: no extremity pain or swelling Neurological: no numbness/tingling, no weakness MEDICATIONS: I agree with the patient medications as charted by the RN. ALLERGIES: I agree with the allergies as charted by the RN. PAST MEDICAL HISTORY/PAST SURGICAL HISTORY: Reviewed and agree as charted by RN. SOCIAL HISTORY: Reviewed and agree as charted by RN. FAMILY HISTORY: No significant familial comorbid conditions directly related to patient complaint EXAM: Reviewed vital signs as charted by RN. CONSTITUTIONAL: Alert and oriented and responds appropriately to questions. Well-appearing; well-nourished HEAD: Normocephalic; atraumatic EYES: Conjunctivae clear, sclerae non-icteric ENT: normal nose; no rhinorrhea; moist mucous membranes; pharynx without lesions noted, no uvula edema or deviation, no tonsillar hypertrophy, phonation normal NECK: Supple without meningismus; non-tender; no cervical lymphadenopathy, no masses CARD: RRR; no murmurs, no clicks, no rubs, no gallops; symmetric distal pulses RESP: Normal chest excursion without splinting or tachypnea; breath sounds clear and equal bilaterally; no wheezes, no rhonchi, no rales, pulse oximetry 99% on room air not hypoxic ABD/GI: Normal bowel sounds; non-distended; soft, mild right lower quadrant tenderness on palpation. There is mild tenderness in the right lower back on palpation, no rebound, no guarding; no palpable organomegaly or masses. BACK: The back appears normal and is non-tender to palpation, there is no CVA tenderness EXT: Normal ROM in all joints; non-tender to palpation; no cyanosis, no effusions, no edema SKIN: Normal color for age and race; warm; dry; good turgor; no acute lesions noted NEURO: Moves all extremities equally; Motor and sensory function intact PSYCH: The patient's mood and manner are appropriate. Grooming and personal hygiene are appropriate. MDM: 19-year-old male with nausea vomiting last night 2 weeks of intermittent lower abdominal pain more constant since last night. Differential is large would include kidney stone, appendicitis, constipation, UTI. Initial screening labs placed by triage process we will add CT imaging to evaluate surgical or infectious processes TRAVEL OUTSIDE OF THE [place] IN LAST 30 DAYS: No - Related Data Allergies/Adverse Reactions: No Known Allergies Allergy (Verified 11/16/18 11:59) Past Medical History - Social History Smoking Status: Never Smoker Chew tobacco use (# tins/day): No Frequency of alcohol use: Rare Drug Abuse: None Family History: Reviewed & Not Pertinent Neurological Medical History: Denies: Hx Seizures Renal/ Medical History: Denies: Hx Peritoneal Dialysis Psychiatric Medical History: Reports: Hx Attention Deficit Hyperactivity Disorder, Hx Bipolar Disorder, Hx Depression, Hx Schizophrenia Past Surgical History: Reports: Hx Orthopedic Surgery - Rt foot - Immunizations Immunizations up to date: Yes Hx Diphtheria, Pertussis, Tetanus Vaccination: Yes Physical Exam - Vital signs Vitals: Temp Pulse Resp BP Pulse Ox 99.0 F 75 20 158/83 H 98 01/18/20 05:25 01/18/20 05:25 01/18/20 05:25 01/18/20 05:25 01/18/20 05:25 Course - Re-evaluation Re-evalutation: 01/18/20 11:23 CT imaging and lab work did not show definitive reason for patient's pain. I discussed this at length with the patient we discussed return precautions he has a primary care provider for follow-up will place patient on a course of Bentyl with return instructions - Vital Signs Vital signs: Temp Pulse Resp BP Pulse Ox 99.0 F 75 20 158/83 H 98 01/18/20 05:25 01/18/20 05:25 01/18/20 05:25 01/18/20 05:25 01/18/20 05:25 - Laboratory Result Diagrams: 01/18/20 07:35 01/18/20 07:35 Laboratory results interpreted by me: 01/18/20 01/18/20 06:22 07:35 Albumin 5.3 H Urine Protein 30 H Discharge - Discharge Clinical Impression: Abdominal pain, right lower quadrant Condition: Stable Disposition: HOME, SELF-CARE Additional Instructions: There was no definitive reason noted for your abdominal pain complaint today. Your imaging studies and lab work do not show acute emergent abnormalities. Take the Bentyl for any continued abdominal pain or spasm. Follow-up with your primary care provider in the next 1 to 2 days for recheck and reevaluation return for fever greater than 101 or worsening pain or symptoms Prescriptions: Dicyclomine HCl [Bentyl 20 mg Tablet] 20 mg PO Q6H PRN #20 tablet PRN Reason:
--- NOTE | 2020-01-18 11:08 | RADIOLOGY REPORT (SQ) ---
EXAM DESCRIPTION: CT ABD/PELVIS WITH IV ORAL IMAGES COMPLETED DATE/TIME: 01/18/2020 10:42 am REASON FOR STUDY: RLQ pain eval for appy COMPARISON: None. TECHNIQUE: CT scan of the abdomen and pelvis performed using helical scanning technique with dynamic intravenous contrast injection. No oral contrast. Images reviewed with lung, soft tissue, and bone windows. Reconstructed coronal and sagittal MPR images reviewed. Delayed images for evaluation of the urinary system also acquired. All images stored on PACS. All CT scanners at this facility use dose modulation, iterative reconstruction, and/or weight based d osing when appropriate to reduce radiation dose to as low as reasonably achievable (ALARA). [facility]: Dose Right [facility]: CareDose [facility]: Dose Right [facility]: Teradose 4D [facility]: Veebox CONTRAST TYPE AND DOSE: Contrast/concentration: Isovue 350.00 mmol/ml; Total Contrast Delivered: 100 .0 ml; Total Saline Delivered: 49.1 ml RENAL FUNCTION: None required. The patient is less than 50 years old. RADIATION DOSE: CT Rad equipment meets quality standard of care and radiation dose reduction techniq ues were employed. CTDIvol: 9.4 - 13.1 mGy. DLP: 1349 mGy-cm. LIMITATIONS: None. FINDINGS: LOWER CHEST: No acute findings. LIVER: The morphology of the liver is noncirrhotic. The portal veins are patent. There is no hepati c mass. SPLEEN: No splenomegaly or splenic mass. PANCREAS: No acute gross abnormality of the pancreas. GALLBLADDER: No acute abnormality of the gallbladder that is apparent on CT. ADRENAL GLANDS: No mass or asymmetry. RIGHT KIDNEY AND URETER: No solid masses. No calcifications. No hydronephrosis or hydroureter. LEFT KIDNEY AND URETER: No solid masses. No calcifications. No hydronephrosis or hydroureter. AORTA AND VESSELS: No aneurysm or dissection of the abdominal aorta. The abdominopelvic vasculature is patent. RETROPERITONEUM: No retroperitoneal adenopathy, hemorrhage or mass. BOWEL AND PERITONEAL CAVITY: No bowel obstruction, bowel wall thickening or pericolonic/ perienteric inflammation. No mesenteric adenopathy, free intraperitoneal fluid or mesenteric/ omental inflammati on. APPENDIX: Normal. PELVIS: No abnormality. ABDOMINAL WALL: No mass or hernia. BONES: Grade 1 retrolisthesis of L5 relative to S1. There is no spondylolisthesis. OTHER: No other finding. IMPRESSION: No acute intra-abdominal abnormality. TECHNICAL DOCUMENTATION: JOB ID: [id number] Quality ID # [id number]: Final reports with documentation of one or more dose reduction techniques (e.g., Au tomated exposure control, adjustment of the mA and/or kV according to patient size, use of iterative reconstruction technique) 2010 [employer]- All Rights Reserved Reading location - IP/workstation name: [email or web address]
[2020-01-18 11:58] VITALS: BP 145/88
== END 2020-01-18 11:57 | disposition home or self-care (01) ==
LOC: ER 05:16
DX: R10.31 Right lower quadrant pain (principal); R11.2 Nausea with vomiting, unspecified; M54.5 Low back pain; R10.30 Lower abdominal pain, unspecified
CPT/HCPCS: 99285; 96374; 96375; 36415; 83690; 85025; 80053; 81001; 74177; J2270; J2405

== ENCOUNTER 2020-01-27 18:18 | Emergency (ER) | payer MEDICARE, MEDICAID ==
[2020-01-27 18:50] VITALS: BP 146/81
[2020-01-27] MEDS ORDERED: ONDANSETRON 4 MG TAB.RAPDIS PO ONE (19:53)
--- NOTE | 2020-01-27 19:56 | ER Document Report ---
ED Medical Screen (RME) - General Chief Complaint: Nausea/Vomiting Stated Complaint: HIP PAIN Time Seen by Provider: 01/27/20 19:45 Mode of Arrival: Ambulatory Information source: Patient Notes: 19-year-old male presented to ED for complaint of nausea with vomiting x9 today. He states he has an abdominal pain 2. He states he has no other symptoms. He states he was seen here last week for the same symptoms and they told him he did not have a kidney stone and they could not tell him why he was vomiting. According to the friend that is with him that he lives with he gets very stressed and anxious and that causes vomiting he has a history of hypothyroid schizophrenia depression anxiety insomnia and as a child he had ADHD but no longer takes medicine for ADHD. He states he uses vapor cigarettes but does not drink or use any illicit drugs. I have ordered blood and urine and Zofran and he will be seen by another provider. I have greeted and performed a rapid initial assessment of this patient. A comprehensive ED assessment and evaluation of the patient, analysis of test results and completion of medical decision making process will be conducted by an additional ED providers. TRAVEL OUTSIDE OF THE [place] IN LAST 30 DAYS: No - Related Data Allergies/Adverse Reactions: No Known Allergies Allergy (Verified 11/16/18 11:59) Home Medications: synthroid. mental health meds Past Medical History - Social History Frequency of alcohol use: None Drug Abuse: None Neurological Medical History: Denies: Hx Seizures Renal/ Medical History: Denies: Hx Peritoneal Dialysis Psychiatric Medical History: Reports: Hx Attention Deficit Hyperactivity Disorder, Hx Bipolar Disorder, Hx Depression, Hx Schizophrenia Past Surgical History: Reports: Hx Orthopedic Surgery - Rt foot - Immunizations Immunizations up to date: Yes Hx Diphtheria, Pertussis, Tetanus Vaccination: Yes Physical Exam - Vital signs Vitals: Temp Pulse Resp BP Pulse Ox 98.3 F 82 16 146/81 H 98 01/27/20 18:49 01/27/20 18:49 01/27/20 18:49 01/27/20 18:49 01/27/20 18:49 Course - Vital Signs Vital signs: Temp Pulse Resp BP Pulse Ox 98.3 F 82 16 146/81 H 98 01/27/20 18:49 01/27/20 18:49 01/27/20 18:49 01/27/20 18:49 01/27/20 18:49
[2020-01-27 20:18] LABS: ABSOLUTE EOSINOPHILS # (AUTO) 0.2 10^3/uL (0.0-0.6); ABSOLUTE LYMPHOCYTES (AUTO) 2.4 10^3/uL (0.5-4.7); ABSOLUTE NEUT (AUTO) 7.2 10^3/uL (1.7-8.2); BASOPHILS % (AUTO) 0.3 % (0-2); EOSINOPHILS % (AUTO) 1.6 % (0-6); HEMATOCRIT 47.5 % (37.9-51.0); HEMOGLOBIN 16.4 g/dL (13.5-17.0); LYMPHOCYTES % (AUTO) 22.1 % (13-45); MEAN CORPUSCULAR HGB CONC 34.4 g/dL (32.0-36.0); MEAN CORPUSCULAR VOLUME 84 fl (80-97); MONOCYTES % (AUTO) 9.2 % (3-13); PLATELET COUNT 218 10^3/uL (150-450); RED BLOOD COUNT 5.64 10^6/uL (4.35-5.55); RED CELL DISTRIBUTION WIDTH 13.3 % (11.5-14.0); SEGMENTED NEUTROPHILS % (AUTO) 66.8 % (42-78); TOTAL CELLS COUNTED % (AUTO) 100 %; WHITE BLOOD COUNT 10.8 10^3/uL (4.0-10.5)
[2020-01-27 20:26] LABS: APPEARANCE,URINE CLEAR; BILIRUBIN,URINE NEGATIVE (NEGATIVE); COLOR,URINE STRAW; GLUCOSE, URINE NEGATIVE (NEGATIVE); KETONES,URINE NEGATIVE (NEGATIVE); LEUKOCYTE ESTERASE,URINE NEGATIVE (NEGATIVE); NITRITE,URINE NEGATIVE (NEGATIVE); PROTEIN,URINE NEGATIVE (NEGATIVE); URINE SPECIFIC GRAVITY 1.006; UROBILINOGEN,URINE NEGATIVE mg/dL (<2.0)
[2020-01-27 20:35] LABS: ALBUMIN 5.5 g/dL (3.5-5.0); ALKALINE PHOSPHATASE 96 U/L (38-126); ANION GAP 12 (5-19); ASPARTATE AMINO TRANSFERASE 32 U/L (17-59); BILIRUBIN,DIRECT 0.2 mg/dL (0.0-0.4); BILIRUBIN,TOTAL 0.4 mg/dL (0.2-1.3); BLOOD UREA NITROGEN 11 mg/dL (7-20); CALCIUM 10.8 mg/dL (8.4-10.2); CARBON DIOXIDE 30 mmol/L (22-30); CHLORIDE 100 mmol/L (98-107); GLUCOSE 94 mg/dL (75-110); POTASSIUM 4.5 mmol/L (3.6-5.0); TOTAL PROTEIN 8.4 g/dL (6.3-8.2)
[2020-01-27 20:46] LABS: URINE AMPHETAMINES SCREEN NEGATIVE; URINE BARBITURATES SCREEN NEGATIVE; URINE BENZODIAZEPINES SCREEN NEGATIVE; URINE COCAINE SCREEN NEGATIVE; URINE MARIJUANA (THC) SCREEN NEGATIVE; URINE PHENCYCLIDINE SCREEN NEGATIVE
[2020-01-27 20:49] LABS: URINE METHADONE SCREEN NEGATIVE
== END 2020-01-27 21:15 | disposition left against medical advice (07) ==
LOC: ER 18:18
DX: R11.2 Nausea with vomiting, unspecified (principal); R10.9 Unspecified abdominal pain; Z72.0 Tobacco use; E03.9 Hypothyroidism, unspecified; Z79.899 Other long term (current) drug therapy; Z53.20 Procedure and treatment not carried out because of patient's decision for unspecified reasons
CPT/HCPCS: 99281; 36415; 83690; 85025; 80053; 81001; 80307; A9270; S0119